=== PATIENT | female | born 1935 | race Caucasian/White ===

== ENCOUNTER → 2019-01-03 | Outpatient (CLI) | payer MEDICARE ==
[~2019-01-03] MED LIST: ASPI-555 PO; CALC-1009 PO; CETI10TA86 PO; DILT180C86 PO; DOCU-116 PO; LINA5TAB PO; LOSA1TAB42 PO; METO-408 PO; MULT-1192 PO; ROSU5TAB PO
== END | disposition home or self-care (01) ==
LOC: SHCH 13:29
PROVIDERS: ATTEND Internal Medicine Cardiovascular Disease
DX: I11.9 Hypertensive heart disease without heart failure (principal); I35.8 Other nonrheumatic aortic valve disorders
CPT/HCPCS: 93306